=== PATIENT | female | born 1970 | race Caucasian/White ===

== ENCOUNTER 2023-01-24 20:22 | Inpatient (IN) | payer MEDICARE, MEDICAID ==
[2023-01-24] MEDS: HYDROmorphone 2 MG/ML Syringe IVPUSH ONE ×2 (20:45→22:15)
[2023-01-24] MEDS ORDERED: Sodium Chloride 0.9% 1,000 ML IV ONE (20:45)
[2023-01-24] MEDS ORDERED: Ondansetron 4 MG/2 ML SDV IVPUSH ONE (20:46)
[2023-01-24] MEDS: Sodium Chloride 0.9% 1,000 ML IV SCH (22:00)
[2023-01-25] MEDS: HYDROmorphone 2 MG/ML Syringe IVPUSH PRN ×3 (04:11→20:44)
[2023-01-25] MEDS: Sodium Chloride 0.9% 1,000 ML IV SCH ×3 (04:41→20:12)
[2023-01-25] MEDS: Enoxaparin 40 MG/0.4 ML Syringe SUBCUT SCH (07:56)
[2023-01-25] MEDS: Ondansetron 4 MG/2 ML SDV IVPUSH PRN ×2 (10:05→17:39)
[2023-01-26] MEDS: Sodium Chloride 0.9% 1,000 ML IV SCH ×3 (01:58→19:05)
[2023-01-26] MEDS: HYDROmorphone 2 MG/ML Syringe IVPUSH PRN (05:52)
[2023-01-26] MEDS: Enoxaparin 40 MG/0.4 ML Syringe SUBCUT SCH (07:40)
[2023-01-26] MEDS ORDERED: Pantoprazole 40 MG Vial IVPUSH SCH (09:30)
[2023-01-26] MEDS ORDERED: Sodium Chloride 0.9% 10 ML Syringe FLUSH SCH (20:00)
[2023-01-27] MEDS: Enoxaparin 40 MG/0.4 ML Syringe SUBCUT SCH (07:48)
[2023-01-27 08:41] VITALS: BP 129/63; PULSE 94
== END 2023-01-27 09:22 | disposition home or self-care (01) | DRG 389 ==
LOC: LB.ED 20:22 → MERGE 21:59 → LB.MS 21:59 → UNDOADMIN 22:59 → LB.MS 22:59
PROVIDERS: ADMIT Physician Assistant; ATTEND Physician Assistant
DX: K56.609 Unspecified intestinal obstruction, unspecified as to partial versus complete obstruction (principal); K56.600 Partial intestinal obstruction, unspecified as to cause; I42.1 Obstructive hypertrophic cardiomyopathy; I42.2 Other hypertrophic cardiomyopathy; H54.7 Unspecified visual loss; E78.00 Pure hypercholesterolemia, unspecified; F32.A Depression, unspecified; I27.20 Pulmonary hypertension, unspecified; I48.91 Unspecified atrial fibrillation; E78.5 Hyperlipidemia, unspecified; Z20.822 Contact with and (suspected) exposure to COVID-19; F17.210 Nicotine dependence, cigarettes, uncomplicated; I50.9 Heart failure, unspecified; K21.9 Gastro-esophageal reflux disease without esophagitis; Z95.1 Presence of aortocoronary bypass graft
CPT/HCPCS: 36415; 74176; 80053; 81001; 83605; 83690; 85025; 96361; 96374; 96375; 99285; J1170 ×2; J2405; J7030; U0002; 74019; 74022; 80048; 85027; 99222; 99232; 99238; C9113; J1650

== ENCOUNTER 2024-04-06 12:16 | Emergency (ER) | payer MEDICAID, MEDICARE ==
[2024-04-06 12:32] VITALS: PULSE 57
[2024-04-06] MEDS ORDERED: Naloxone 2 MG/2 ML Syringe IVPUSH PRN (12:51)
[2024-04-06] MEDS: HYDROmorphone 2 MG/ML Syringe IM ONE (12:53)
[2024-04-06] MEDS: Orphenadrine 60 MG/2 ML Inj IM ONE (12:53)
[2024-04-06 12:56] VITALS: BP 127/79
== END 2024-04-06 14:07 | disposition home or self-care (01) ==
LOC: LB.ED 12:16
DX: S39.012A Strain of muscle, fascia and tendon of lower back, initial encounter (principal); F17.210 Nicotine dependence, cigarettes, uncomplicated; J45.909 Unspecified asthma, uncomplicated; E78.00 Pure hypercholesterolemia, unspecified; I10 Essential (primary) hypertension; Z79.02 Long term (current) use of antithrombotics/antiplatelets; Z79.899 Other long term (current) drug therapy; Z91.018 Allergy to other foods; Z88.6 Allergy status to analgesic agent; Z88.8 Allergy status to other drugs, medicaments and biological substances; X58.XXXA Exposure to other specified factors, initial encounter
CPT/HCPCS: 72100; 96372; 99283; J1170; J2360